=== PATIENT | female | born 1945 | race African-American/Black ===

== ENCOUNTER → 2016-09-24 | Outpatient (CLI) | payer MEDICARE ==
[~2016-09-24] MED LIST: CLCX200C; GLIM4TAB PO; LOSA1TAB70 PO; METO100T6 PO; NF-ESOM40C; OLME1TAB19; SITA100T; [UNRECOGNIZED DRUG - CODE]
--- OUTSIDE RECORDS SUMMARY | 2016-09-24 09:55 | XMS REPORT | Continuity of Care Document ---
Author Author [facility] Organization [facility] Address Unknown Phone Unavailable Care Team Providers Care Appliance Worker Name Role Phone Carlos Huynh PCP [phone] Source Comments Some departments are not documenting in the electronic medical record. If you do not see the information that you expected, contact Release of Information in the Health Information Management department at [phone] for further assistance in locating additional records.[facility] Active Allergies and Adverse Reactions No Known Allergies Current Medications Prescription Sig. Disp. Refills Start End Date Status Date metoprolol XL (TOPROL XL) Take 100 mg by mouth Active 100 mg tablet daily. COCONUT OIL PO Take 1 Tab by mouth Active daily. other medication Take 1 Dose by mouth Active daily. HAIR INFINITY SUPPLEMENT glimepiride (AMARYL) 4 mg Take 4 mg by mouth daily Active tablet with breakfast. losartan/hydrochlorothiaz Take 1 Tab by mouth Active marilee (HYZAAR) 100/25 mg daily. tablet 1 Tab ciprofloxacin HCl (CIPRO) Take 500 mg by mouth Active 500 mg tablet twice daily. liraglutide(+) (VICTOZA) Inject 0.6 mg under the Active 0.6 mg/0.1 mL (18 mg/3 skin daily. 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575 m (5' 2") 04/23/2016 10:38 AM CDT Weight 68.04 kg (150 lb) 04/23/2016 10:38 AM CDT Body Mass Index 27.43 04/23/2016 10:38 AM CDT Oxygen Saturation 98% 04/23/2016 10:38 AM CDT Plan of Care Date Type Specialty Providers Description 09/26/2016 Appointment Sports Medicine Michael Pedroza MD [address] [place] [address] [phone] (Fax) Health Maintenance Due Date Last Done Comments Hepatitis C Screening 1945 Physical (Comprehensive) 1954 Exam Pertussis Vaccine 1958 Tetanus Vaccine 1964 Breast Cancer Screening 1987 Colorectal Cancer 1997 Screening Shingles Vaccine 2007 Osteoporosis Screening 2012 Prevnar/Pneumovax (#1) 2012 Influenza Vaccine 04/18/2016 Results from Last 3 Months Not on file
[2016-09-24 10:03] LABS: BASOPHILS % (AUTO) 1 % (0-10); EOSINOPHILS # (AUTO) 0.1 10^3/uL (0.0-0.3); EOSINOPHILS % (AUTO) 2 % (0-10); LYMPHOCYTES # (AUTO) 2.8 X 10^3 (1.0-4.0); LYMPHOCYTES % (AUTO) 37 % (12-44); MEAN CORPUSCULAR HEMOGLOBIN 31 PG (25-34); MEAN CORPUSCULAR HGB CONC 34 G/DL (32-36); MEAN CORPUSCULAR VOLUME 90 FL (80-99); MONOCYTES # (AUTO) 0.7 X 10^3 (0.0-1.0); MONOCYTES % (AUTO) 9 % (0-12); NEUTROPHILS % (AUTO) 52 % (42-75); PLATELET COUNT 251 10^3/uL (130-400); RED BLOOD COUNT 4.39 10^6/uL (4.35-5.85); RED CELL DISTRIBUTION WIDTH 12.6 % (10.0-14.5); WHITE BLOOD COUNT 7.6 10^3/uL (4.3-11.0)
[2016-09-24 10:34] LABS: ALANINE AMINOTRANSFERASE 28 U/L (0-55); ALBUMIN 4.3 G/DL (3.2-4.5); ANION GAP 11 MMOL/L (5-14); ASPARTATE AMINO TRANSFERASE 19 U/L (5-34); BILIRUBIN,TOTAL 0.6 MG/DL (0.1-1.0); BLOOD UREA NITROGEN 15 MG/DL (7-18); BUN/CREATININE RATIO 17; CALCIUM 9.4 MG/DL (8.5-10.1); CARBON DIOXIDE 22 MMOL/L (21-32); CHLORIDE 103 MMOL/L (98-107); CREATININE SERUM 0.88 MG/DL (0.60-1.30); GFR ESTIMATED > 60; GLUCOSE 264 MG/DL (70-105); POTASSIUM 3.8 MMOL/L (3.6-5.0); SODIUM 136 MMOL/L (135-145); TOTAL PROTEIN 7.3 G/DL (6.4-8.2)
== END ==
LOC: ONC 09:53
PROVIDERS: ATTEND Internal Medicine Hematology & Oncology
DX: Z08 Encounter for follow-up examination after completed treatment for malignant neoplasm (principal); Z85.3 Personal history of malignant neoplasm of breast; E11.9 Type 2 diabetes mellitus without complications; I10 Essential (primary) hypertension; Z80.0 Family history of malignant neoplasm of digestive organs; Z86.010 Personal history of colon polyps; Z90.12 Acquired absence of left breast and nipple
CPT/HCPCS: 36415; 80053; 85025; 99213

== ENCOUNTER → 2016-10-02 | Outpatient (CLI) | payer MEDICARE ==
--- OUTSIDE RECORDS SUMMARY | 2016-10-02 08:12 | XMS REPORT | Continuity of Care Document ---
Author Author [facility] Organization [facility] Address Unknown Phone Unavailable Care Team Providers Care Medical Records Supervisor Name Role Phone Carlos Huynh PCP [phone] Source Comments Some departments are not documenting in the electronic medical record. If you do not see the information that you expected, contact Release of Information in the Health Information Management department at [phone] for further assistance in locating additional records.[facility] Active Allergies and Adverse Reactions No Known [...] Recent Encounters Date Type Specialty Providers Description 09/26/2016 Hospital Radiology Michael Pedroza MD Arrived Encounter 09/26/2016 Office Visit Sports Medicine Michael Pedroza MD Failed total left knee replacement, sequela (Primary Dx) 09/23/2016 Orders Only Sports Michael Ramirez MD Status post left knee replacement (Primary Dx) Social History Tobacco Use Types Packs/Day Years Used Date Former Smoker Quit: 06/14/1980 Smokeless Tobacco: Never Used Alcohol Use Drinks/Week oz/Week Comments No Last Filed Vital Signs Vital Sign Reading Time Taken Blood Pressure 143/76 09/26/2016 11:02 AM ADMINISTRATIVE AND PROGRAM SPECIALIST Pulse 75 09/26/2016 11:02 AM ADMINISTRATIVE AND PROGRAM SPECIALIST Temperature 37.5 C (99.5 F) 07/05/2015 3:29 PM ADMINISTRATIVE AND PROGRAM SPECIALIST Respiratory Rate 16 09/26/2016 11:02 AM ADMINISTRATIVE AND PROGRAM SPECIALIST Height 1.575 m (5' 2") 09/26/2016 11:02 AM ADMINISTRATIVE AND PROGRAM SPECIALIST Weight 75.751 kg (167 lb) 09/26/2016 11:02 AM ADMINISTRATIVE AND PROGRAM SPECIALIST Body Mass Index 30.54 09/26/2016 11:02 AM ADMINISTRATIVE AND PROGRAM SPECIALIST Oxygen Saturation 100% 09/26/2016 11:02 AM ADMINISTRATIVE AND PROGRAM SPECIALIST Plan of Care Date Type Specialty Providers Description 12/31/2016 Appointment Sports Medicine Michael Pedroza MD [address] [facility] [address] [place] [address] [phone] (Fax) Health Maintenance Due Date Last Done Comments Hepatitis C Screening 1945 Physical (Comprehensive) 1954 Exam Pertussis Vaccine 1958 Tetanus Vaccine 1964 Breast Cancer Screening 1987 Colorectal Cancer 1997 Screening Shingles Vaccine 2007 Osteoporosis Screening 2012 Prevnar/Pneumovax (#1) 2012 Influenza Vaccine 04/18/2016 Results from Last 3 Months KNEE 3 VIEWS LEFT (09/26/2016 11:10 AM) Impressions Findings/Impression: 1.Left knee: Unremarkable unchanged left total knee arthroplasty. Persistent thin lucent line at the bone cement interface along the anterior aspect of the femoral component to the total knee arthroplasty. Normal alignment. No fractures or bone lesions. No joint effusion. 2.Right knee merchant view: normal patellofemoral alignment. Patellofemoral joint spaces maintained. Finalized by Tawanda Ding M.D. on 09/26/2016 11:40 AM. Dictated by Tawanda Ding M.D. on 09/26/2016 11:39 AM. Narrative Left knee 3 views, right knee one view. History: Status post left total knee replacement. Compared to April 23, 2016. Procedure Note Interface, Radiant Results - [facility] Sep 26, 2016 11:44 AM ADMINISTRATIVE AND PROGRAM SPECIALIST Left knee 3 views, right knee one view. History: Status post left total knee replacement. Compared to April 23, 2016. IMPRESSION Findings/Impression: 1. Left knee: Unremarkable unchanged left total knee arthroplasty. Persistent thin lucent line at the bone cement interface along the anterior aspect of the femoral component to the total knee arthroplasty. Normal alignment. No fractures or bone lesions. No joint effusion. 2. Right knee merchant view: normal patellofemoral alignment. Patellofemoral joint spaces maintained. Finalized by Tawanda Ding M.D. on 09/26/2016 11:40 AM. Dictated by Tawanda Ding M.D. on 09/26/2016 11:39 AM.
--- NOTE | 2016-10-02 09:12 | Diagnostic Imaging Report ---
INDICATION: Shortness of breath. EXAMINATION: PA and lateral chest. FINDINGS: The heart size and pulmonary vascularity are normal. The lungs are clear. There are no effusions or pneumothoraces. IMPRESSION: Negative chest. Dictated by: Dictated on workstation # [id number]
--- NOTE | 2016-10-02 19:08 | Diagnostic Imaging Report ---
Bilateral diagnostic mammogram. INDICATION: Status post left mastectomy with an implant. The patient feels that the implant has shifted into the axilla region with fullness in the axilla. No prior studies are available to evaluate the implant. Prior studies comparison for the right breast are available, however, including 12/15/15. The current study was also evaluated with a Computer Aided Detection (CAD) system. FINDINGS: There is an implant in the left side with smooth margins and no mammographic evidence of rupture. There is a symmetric regular appearance of the implant with no outpouching into the axilla seen. No suspicious mass or calcification. The right breast demonstrates heterogeneously dense parenchyma, less dense compared to the previous study with benign-appearing calcifications. IMPRESSION: No mammographic evidence of malignancy. No mammographic abnormality of the left breast implant is seen. Ultrasound evaluation pending. ACR BI-RADS Category 0: Incomplete. (Needs additional imaging evaluation). Result letter will be mailed to the patient. Note: At least 10% of breast cancer is not imaged by mammography. Dictated by: Dictated on workstation # [id number]
--- NOTE | 2016-10-02 19:20 | Diagnostic Imaging Report ---
EXAMINATION: Left breast ultrasound. INDICATION: The patient feels that the implant appears shifted towards the axillary region. FINDINGS: The implant surface has a normal appearance with no surrounding fluid to suggest leakage, and there is no solid mass identified. IMPRESSION: No suspicious lesion and no evidence of implant rupture. This study cannot confirm or rule out shifting of the implant. Correlate clinically. ACR BI-RADS Category 2: Benign findings. Dictated by: Dictated on workstation # [id number]
== END ==
LOC: RAD 07:55
PROVIDERS: ATTEND Nurse Practitioner Adult Health
DX: N63 Unspecified lump in breast (principal); Z98.82 Breast implant status
CPT/HCPCS: 71020; 76641; 77066

== ENCOUNTER → 2017-08-13 | Outpatient (CLI) | payer MEDICARE ==
[~2017-08-13] MED LIST changes: +LOSA1TAB23 PO; -LOSA1TAB70 PO
== END ==
LOC: CARD 09:44
PROVIDERS: ATTEND Internal Medicine Cardiovascular Disease
DX: I10 Essential (primary) hypertension (principal); R06.02 Shortness of breath; E11.9 Type 2 diabetes mellitus without complications; M19.91 Primary osteoarthritis, unspecified site
CPT/HCPCS: 93306

== ENCOUNTER → 2017-09-03 | Outpatient (CLI) | payer MEDICARE ==
[~2017-09-03] MED LIST changes: +CATHETER FLUSH 10 ML SYR IV PRN
[2017-09-03 13:02] VITALS: BP 151/76
[2017-09-03 13:12] VITALS: BP 200/76
[2017-09-03 13:16] VITALS: BP 172/79
--- NOTE | 2017-09-03 20:54 | STRESS TEST ---
DATE OF SERVICE: 09/03/2017 EXERCISE MYOVIEW STRESS TEST REPORT Baseline heart rate is 81. Baseline blood pressure is 149/86. Baseline EKG is sinus rhythm with no ischemic changes. In summary, the patient was injected with 10.73 mCi of technetium-99 Myoview and the resting images were obtained. Then, the patient started exercising with a baseline heart rate, blood pressure and EKG mentioned above. The patient was able to exercise for a total of 3 minutes on standard Jose protocol. With peak exercise level, EKG was showing minimal nondiagnostic EKG changes, [address] depression in II, III, aVF, V3, V4, V5 and V6. With peak exercise level, blood pressure was 200/76. During recovery, heart rate and blood pressure returned to baseline. EKG returned to baseline. The resting and stress images were reviewed and compared in the short axis, horizontal long axis and vertical long axis views. Review of the images showed breast attenuation with good radiotracer uptake, no significant ischemia or infarction. SSS is 1, SDS 1, TID value 1.03. On the gated images, the left ventricle appeared to be normal size with normal contractility. Calculated ejection fraction 70%. CONCLUSION: 1. Poor exercise tolerance, a total of 3 minutes on standard Jose protocol, total of 4.6 METs achieving 94% of maximum expected heart rate. 2. Hypertensive response to exercise, returned to baseline during recovery. 3. Nondiagnostic EKG changes with exercise returned to baseline during recovery. 4. No ischemia or infarction on SPECT images. 5. Normal left ventricular size with normal contractility. Calculated ejection fraction 70%. Job ID: [id number] DocumentID: [id number] Dictated Date: 09/03/2017 15:10:17 Machine Lead Burner Date: 09/03/2017 19:52:55 Dictated By: BOGADN YOUNG MD
== END ==
LOC: CARD 11:27
PROVIDERS: ATTEND Internal Medicine Cardiovascular Disease
DX: I10 Essential (primary) hypertension (principal); R06.02 Shortness of breath; E11.9 Type 2 diabetes mellitus without complications; M19.91 Primary osteoarthritis, unspecified site
CPT/HCPCS: 78452; 93017

== ENCOUNTER → 2017-09-22 | Outpatient (CLI) | payer MEDICARE ==
[~2017-09-22] MED LIST changes: -CATHETER FLUSH 10 ML SYR IV PRN
[2017-09-22 15:12] LABS: BASOPHILS % (AUTO) 0 % (0-10); EOSINOPHILS # (AUTO) 0.1 10^3/uL (0.0-0.3); EOSINOPHILS % (AUTO) 2 % (0-10); HEMATOCRIT 36 % (35-52); HEMOGLOBIN 12.5 G/DL (11.5-16.0); LYMPHOCYTES # (AUTO) 3.6 X 10^3 (1.0-4.0); LYMPHOCYTES % (AUTO) 43 % (12-44); MEAN CORPUSCULAR HEMOGLOBIN 32 PG (25-34); MEAN CORPUSCULAR HGB CONC 34 G/DL (32-36); MEAN CORPUSCULAR VOLUME 92 FL (80-99); MEAN PLATELET VOLUME 9.5 FL (7.4-10.4); MONOCYTES # (AUTO) 0.7 X 10^3 (0.0-1.0); MONOCYTES % (AUTO) 9 % (0-12); NEUTROPHILS # (AUTO) 3.8 X 10^3 (1.8-7.8); NEUTROPHILS % (AUTO) 46 % (42-75); PLATELET COUNT 238 10^3/uL (130-400); RED BLOOD COUNT 3.95 10^6/uL (4.35-5.85); RED CELL DISTRIBUTION WIDTH 12.6 % (10.0-14.5); WHITE BLOOD COUNT 8.2 10^3/uL (4.3-11.0)
[2017-09-22 15:38] LABS: ALANINE AMINOTRANSFERASE 29 U/L (0-55); ALBUMIN 3.9 GM/DL (3.2-4.5); ALKALINE PHOSPHATASE 98 U/L (40-136); BILIRUBIN,TOTAL 0.3 MG/DL (0.1-1.0); BUN/CREATININE RATIO 25; CALCIUM 9.3 MG/DL (8.5-10.1); CARBON DIOXIDE 24 MMOL/L (21-32); CHLORIDE 101 MMOL/L (98-107); CREATININE SERUM 0.87 MG/DL (0.60-1.30); GFR ESTIMATED > 60; GLUCOSE 226 MG/DL (70-105); POTASSIUM 3.7 MMOL/L (3.6-5.0); SODIUM 138 MMOL/L (135-145); TOTAL PROTEIN 7.1 GM/DL (6.4-8.2)
== END ==
LOC: ONC 14:49
PROVIDERS: ATTEND Internal Medicine Hematology & Oncology
DX: Z08 Encounter for follow-up examination after completed treatment for malignant neoplasm (principal); Z85.3 Personal history of malignant neoplasm of breast; E11.9 Type 2 diabetes mellitus without complications; I10 Essential (primary) hypertension; Z80.0 Family history of malignant neoplasm of digestive organs; Z86.010 Personal history of colon polyps; Z90.12 Acquired absence of left breast and nipple
CPT/HCPCS: 36415; 80053; 85025; 99213

== ENCOUNTER → 2017-10-09 | Outpatient (CLI) | payer MEDICARE ==
--- NOTE | 2017-10-09 18:19 | Diagnostic Imaging Report ---
INDICATION: Routine screening. Comparison is made with prior exam from 10/02/2016 and 12/15/2015. The current study was also evaluated with a Computer Aided Detection (CAD) system. Scattered parenchymal fibroglandular tissue is noted on the right. The parenchymal pattern is stable. No dominant mass or malignant appearing microcalcifications are seen. The right axilla is unremarkable. IMPRESSION: No mammographic features suspicious for malignancy are identified. ACR BI-RADS Category 1: Negative. Result letter will be mailed to the patient. Note: At least 10% of breast cancer is not imaged by mammography. Dictated by: Dictated on workstation # [id number]
== END ==
LOC: RAD 09:44
PROVIDERS: ATTEND Internal Medicine Hematology & Oncology
DX: Z12.31 Encounter for screening mammogram for malignant neoplasm of breast (principal); Z85.3 Personal history of malignant neoplasm of breast

== ENCOUNTER → 2018-05-25 | Outpatient (CLI) | payer MEDICARE ==
--- NOTE | 2018-05-25 09:10 | Diagnostic Imaging Report ---
PROCEDURE: MRI lumbar spine. TECHNIQUE: Multiplanar, multisequence MRI of the lumbar spine was performed without contrast. INDICATION: No known injury, however low back pain radiating down the left knee, left leg and posterior to the knee symptoms of one and half years' duration, has a remote history of breast cancer. COMPARISONS: I have no priors. FINDINGS: There is no geographic marrow lesion. There are no findings suggestive of the MRI evidence for lumbar spinal involvement by metastatic disease. There is no evidence for fracture or infection. There is grade 1 degenerative anterolisthesis of L4 on L5 without demonstrated pedicle or pars defect. Posterior cortices are off about 3 mm. The remaining levels are aligned normally and the lumbar statures are normal. There is no paravertebral mass, hemorrhage or fluid collection. The conus appeared normal. The nerve roots of the cauda equina revealed a normal pattern of dispersal. T12-L1: Very slight anteriorly oriented osteophyte disc material results in no stenosis. L1-L2: Minimal anterior endplate osteophytes are present. There is no stenosis. L2-L3: There is mild disc desiccation without substantial stature loss. There is mild thickening of the ligamenta flava with mild anterior osteophyte disc material. There was however no substantial canal, foraminal or recess stenosis. L3-L4: There is thickening of ligamenta flava, facet arthrosis with mild disc bulging diffusely. The constellation of findings results in a borderline mild degree of biforaminal narrowing and a mild degree of central canal stenosis. L4-L5: Degenerative listhesis, disc bulge, hypertrophic facet arthrosis and substantial thickening of ligamenta flava conspire to result in a severe degree of trefoil configured stenosis of the thecal sac at this disc space level with at least with a moderate severity of right and [id number] left foraminal narrowing. L5-S1: Midline focal disc protrusion slightly indents the ventral thecal sac. There is peripheral annular tearing associated with the midline bulge disc. The neural foramen however widely patent. The spinal canal stenosis is relatively mild. IMPRESSION: 1. Grade 1 degenerative L4 on L5 anterolisthesis where there is severe central canal stenosis owing to a constellation of contributing factors listed above. There is right greater than left foraminal narrowing. 2. A midline protrusion at L5-S1 mildly stenoses the thecal sac. 3. No evidence for fracture, infection or metastatic disease. Dictated by: Dictated on workstation # [id number]
== END ==
LOC: RAD 07:19
PROVIDERS: ATTEND Pain Medicine Interventional Pain Medicine
DX: M48.061 Spinal stenosis, lumbar region without neurogenic claudication (principal); M51.27 Other intervertebral disc displacement, lumbosacral region; M51.37 Other intervertebral disc degeneration, lumbosacral region; M43.16 Spondylolisthesis, lumbar region; M99.73 Connective tissue and disc stenosis of intervertebral foramina of lumbar region; M47.22 Other spondylosis with radiculopathy, cervical region; M51.17 Intervertebral disc disorders with radiculopathy, lumbosacral region; M25.78 Osteophyte, vertebrae; M46.06 Spinal enthesopathy, lumbar region; Z85.3 Personal history of malignant neoplasm of breast
CPT/HCPCS: 72148

== ENCOUNTER 2018-09-22 10:51 | Outpatient (RCR) | payer MEDICARE ==
[2018-09-22 11:05] LABS: BASOPHILS % (AUTO) 1 % (0-10); EOSINOPHILS # (AUTO) 0.1 10^3/uL (0.0-0.3); EOSINOPHILS % (AUTO) 2 % (0-10); HEMATOCRIT 39 % (35-52); LYMPHOCYTES # (AUTO) 2.9 X 10^3 (1.0-4.0); LYMPHOCYTES % (AUTO) 34 % (12-44); MEAN CORPUSCULAR HEMOGLOBIN 31 PG (25-34); MEAN CORPUSCULAR HGB CONC 33 G/DL (32-36); MEAN CORPUSCULAR VOLUME 93 FL (80-99); MEAN PLATELET VOLUME 9.3 FL (7.4-10.4); MONOCYTES # (AUTO) 0.7 X 10^3 (0.0-1.0); MONOCYTES % (AUTO) 9 % (0-12); NEUTROPHILS # (AUTO) 4.8 X 10^3 (1.8-7.8); NEUTROPHILS % (AUTO) 56 % (42-75); PLATELET COUNT 340 10^3/uL (130-400); RED CELL DISTRIBUTION WIDTH 12.9 % (10.0-14.5); WHITE BLOOD COUNT 8.6 10^3/uL (4.3-11.0)
[2018-09-22 11:25] LABS: ALANINE AMINOTRANSFERASE 24 U/L (0-55); ALBUMIN 4.4 GM/DL (3.2-4.5); ALKALINE PHOSPHATASE 155 U/L (40-136); BILIRUBIN,TOTAL 0.5 MG/DL (0.1-1.0); BUN/CREATININE RATIO 19; CARBON DIOXIDE 29 MMOL/L (21-32); CHLORIDE 101 MMOL/L (98-107); CREATININE SERUM 0.78 MG/DL (0.60-1.30); GFR ESTIMATED > 60; GLUCOSE 128 MG/DL (70-105); POTASSIUM 3.4 MMOL/L (3.6-5.0); SODIUM 140 MMOL/L (135-145); TOTAL PROTEIN 7.9 GM/DL (6.4-8.2)
== END 2018-12-21 | disposition home or self-care (01) ==
LOC: ONC 10:51
PROVIDERS: ATTEND Internal Medicine Hematology & Oncology
DX: Z08 Encounter for follow-up examination after completed treatment for malignant neoplasm (principal); Z85.3 Personal history of malignant neoplasm of breast; E11.9 Type 2 diabetes mellitus without complications; I10 Essential (primary) hypertension; Z80.0 Family history of malignant neoplasm of digestive organs; Z86.010 Personal history of colon polyps; Z90.12 Acquired absence of left breast and nipple
CPT/HCPCS: 36415; 80053; 85025; 99213

== ENCOUNTER → 2019-02-22 | Outpatient (CLI) | payer MEDICARE ==
--- NOTE | 2019-02-22 09:46 | Diagnostic Imaging Report ---
PROCEDURE: CT lumbar spine without contrast. TECHNIQUE: Multiple contiguous axial images were obtained through the lumbar spine without the use of intravenous contrast. Sagittal and coronal reformations were then performed. Auto Exposure Controls were utilized during the CT exam to meet ALARA standards for radiation dose reduction. INDICATION: Low back pain. FINDINGS: Curvature and alignment of lumbar spine is normal. There are postoperative changes posterior instrumented fusion with vertical stabilization rods and pedicle screws transfixing L4-L5 level. Hardware appears to be intact without fracture or loosening. There is intervertebral device at L4-L5 as well. Vertebral body heights are maintained. Disc spaces are fairly well-maintained. No acute bony abnormality is identified. Paraspinous tissues are unremarkable. IMPRESSION: Postop changes of posterior instrumented fusion L4-L5. No complicating features are seen. Dictated by: Dictated on workstation # [id number]
== END ==
LOC: RAD 08:45
PROVIDERS: ATTEND Physician Assistant
DX: M54.5 Low back pain (principal); Z98.1 Arthrodesis status
CPT/HCPCS: 72131

== ENCOUNTER → 2019-09-13 | Outpatient (CLI) | payer MEDICARE ==
[~2019-09-13] MED LIST changes: -GLIM4TAB PO; +GLIM4TAB3 PO
[2019-09-13 10:22] LABS: BASOPHILS % (AUTO) 0 % (0-10); EOSINOPHILS # (AUTO) 0.1 10^3/uL (0.0-0.3); EOSINOPHILS % (AUTO) 1 % (0-10); HEMATOCRIT 41 % (35-52); HEMOGLOBIN 13.6 G/DL (11.5-16.0); LYMPHOCYTES # (AUTO) 3.1 X 10^3 (1.0-4.0); LYMPHOCYTES % (AUTO) 28 % (12-44); MEAN CORPUSCULAR HEMOGLOBIN 31 PG (25-34); MEAN CORPUSCULAR HGB CONC 33 G/DL (32-36); MEAN CORPUSCULAR VOLUME 93 FL (80-99); MEAN PLATELET VOLUME 9.2 FL (7.4-10.4); MONOCYTES # (AUTO) 0.9 X 10^3 (0.0-1.0); MONOCYTES % (AUTO) 8 % (0-12); NEUTROPHILS # (AUTO) 7.2 X 10^3 (1.8-7.8); NEUTROPHILS % (AUTO) 63 % (42-75); PLATELET COUNT 250 10^3/uL (130-400); RED CELL DISTRIBUTION WIDTH 13.2 % (10.0-14.5); WHITE BLOOD COUNT 11.3 10^3/uL (4.3-11.0)
[2019-09-13 10:50] LABS: ALANINE AMINOTRANSFERASE 26 U/L (0-55); ALBUMIN 4.3 GM/DL (3.2-4.5); ALKALINE PHOSPHATASE 94 U/L (40-136); BILIRUBIN,TOTAL 0.9 MG/DL (0.1-1.0); BUN/CREATININE RATIO 24; CALCIUM 9.5 MG/DL (8.5-10.1); CARBON DIOXIDE 25 MMOL/L (21-32); CHLORIDE 103 MMOL/L (98-107); CREATININE SERUM 0.72 MG/DL (0.60-1.30); GFR ESTIMATED > 60; GLUCOSE 122 MG/DL (70-105); POTASSIUM 3.7 MMOL/L (3.6-5.0); SODIUM 138 MMOL/L (135-145); TOTAL PROTEIN 7.6 GM/DL (6.4-8.2)
== END ==
LOC: EDSTATUS 12-22 08:22 → ONC 10:02
PROVIDERS: ATTEND Internal Medicine Hematology & Oncology
DX: Z08 Encounter for follow-up examination after completed treatment for malignant neoplasm (principal); Z85.3 Personal history of malignant neoplasm of breast; E11.9 Type 2 diabetes mellitus without complications; I10 Essential (primary) hypertension; Z80.0 Family history of malignant neoplasm of digestive organs; Z86.010 Personal history of colon polyps; Z90.12 Acquired absence of left breast and nipple
CPT/HCPCS: 80053; 85025; 99213

== ENCOUNTER → 2019-09-20 | Outpatient (CLI) | payer MEDICARE ==
--- NOTE | 2019-09-20 12:18 | Diagnostic Imaging Report ---
INDICATION: Routine screening. COMPARISON: 10/07/2017 and 10/02/2016. TECHNIQUE: 2D and 3D unilateral right screening mammography was performed with CAD. FINDINGS: The right breast is heterogeneously dense, limiting the sensitivity of mammography. There are vascular calcifications. Benign parenchymal calcifications are noted. No mass or malignant appearing microcalcifications are seen. The right axilla is unremarkable. IMPRESSION: No mammographic features suspicious for malignancy are identified. ACR BI-RADS Category 2: Benign findings. Result letter will be mailed to the patient. Note: At least 10% of breast cancer is not imaged by mammography. Dictated by: Dictated on workstation # [id number]
== END ==
LOC: RAD 09:45
PROVIDERS: ATTEND Internal Medicine Hematology & Oncology
DX: Z12.31 Encounter for screening mammogram for malignant neoplasm of breast (principal); Z85.3 Personal history of malignant neoplasm of breast

== ENCOUNTER → 2020-09-19 | Outpatient (CLI) | payer MEDICARE ==
[~2020-09-19] MED LIST changes: -GLIM4TAB3 PO; +GLIM4TAB5 PO
[2020-09-19 13:11] LABS: BASOPHILS # (AUTO) 0.1 10^3/uL (0.0-0.1); BASOPHILS % (AUTO) 1 % (0-10); EOSINOPHILS # (AUTO) 0.3 10^3/uL (0.0-0.3); EOSINOPHILS % (AUTO) 3 % (0-10); HEMATOCRIT 40 % (35-52); HEMOGLOBIN 13.6 g/dL (11.5-16.0); LYMPHOCYTES % (AUTO) 38 % (12-44); MEAN CORPUSCULAR HEMOGLOBIN 32 pg (25-34); MEAN CORPUSCULAR HGB CONC 34 g/dL (32-36); MEAN CORPUSCULAR VOLUME 92 fL (80-99); MEAN PLATELET VOLUME 9.7 fL (9.0-12.2); MONOCYTES # (AUTO) 0.9 10^3/uL (0.0-1.0); MONOCYTES % (AUTO) 9 % (0-12); NEUTROPHILS # (AUTO) 5.2 10^3/uL (1.8-7.8); NEUTROPHILS % (AUTO) 50 % (42-75); PLATELET COUNT 285 10^3/uL (130-400); WHITE BLOOD COUNT 10.5 10^3/uL (4.3-11.0)
[2020-09-19 13:30] LABS: ALANINE AMINOTRANSFERASE 26 U/L (0-55); ALBUMIN 4.4 GM/DL (3.2-4.5); ALKALINE PHOSPHATASE 103 U/L (40-136); BILIRUBIN,TOTAL 0.4 MG/DL (0.1-1.0); BUN/CREATININE RATIO 27; CALCIUM 9.6 MG/DL (8.5-10.1); CARBON DIOXIDE 22 MMOL/L (21-32); CHLORIDE 103 MMOL/L (98-107); CREATININE SERUM 0.84 MG/DL (0.60-1.30); GFR ESTIMATED > 60; GLUCOSE 107 MG/DL (70-105); POTASSIUM 3.3 MMOL/L (3.6-5.0); SODIUM 138 MMOL/L (135-145)
== END ==
LOC: ONC 13:00
PROVIDERS: ATTEND Internal Medicine Hematology & Oncology
DX: Z12.31 Encounter for screening mammogram for malignant neoplasm of breast (principal); I89.0 Lymphedema, not elsewhere classified; I10 Essential (primary) hypertension; E11.9 Type 2 diabetes mellitus without complications; E78.2 Mixed hyperlipidemia; M19.90 Unspecified osteoarthritis, unspecified site; Z85.3 Personal history of malignant neoplasm of breast; Z98.890 Other specified postprocedural states; Z96.652 Presence of left artificial knee joint; Z92.21 Personal history of antineoplastic chemotherapy; Z90.12 Acquired absence of left breast and nipple
CPT/HCPCS: 80053; 85025; G0463; 99213

== ENCOUNTER → 2020-10-10 | Outpatient (CLI) | payer MEDICARE ==
--- NOTE | 2020-10-10 13:24 | Diagnostic Imaging Report ---
Indication: Routine screening. Comparison is made prior mammogram 09/20/2019 10/09/2017. Unilateral right 2-D and 3-D screening mammography was performed with CAD. Right breast is heterogeneously dense, limiting the sensitivity of mammography. Benign parenchymal and vascular calcifications again noted. No mass or malignant appearing microcalcifications are seen. Right axilla is unremarkable. IMPRESSION: BI-RADS Category 2 No mammographic features suspicious for malignancy are identified. ACR BI-RADS Category 2: Benign findings. Result letter will be mailed to the patient. Note: At least 10% of breast cancer is not imaged by mammography. Dictated by: Dictated on workstation # [id number]
== END ==
LOC: RAD 11:30
PROVIDERS: ATTEND Internal Medicine Hematology & Oncology
DX: Z12.31 Encounter for screening mammogram for malignant neoplasm of breast (principal); C50.111 Malignant neoplasm of central portion of right female breast
CPT/HCPCS: 77063

== ENCOUNTER → 2021-02-27 | Outpatient (CLI) | payer MEDICARE ==
--- NOTE | 2021-02-27 13:42 | Diagnostic Imaging Report ---
INDICATION: Swelling of the lateral foot and ankle. 3 views right foot were obtained. FINDINGS: There is generalized demineralization. Metatarsals appear intact. Phalanges are intact. There are some degenerative changes involving multiple tarsometatarsal joints. Midfoot and hindfoot are unremarkable apart from a large plantar calcaneal spur. No fractures are seen. IMPRESSION: Chronic changes. No acute bony abnormality is detected. Dictated by: Dictated on workstation # [id number]
== END ==
LOC: RAD 10:45
PROVIDERS: ATTEND Nurse Practitioner Family
DX: M25.471 Effusion, right ankle (principal)
CPT/HCPCS: 73630

== ENCOUNTER 2022-05-25 11:43 | Outpatient (CLI) | payer MEDICARE ==
[~2022-05-25] VITALS: Ht 158 cm; Wt 72.7 kg
--- NOTE | 2022-05-25 12:20 | Diagnostic Imaging Report ---
INDICATION: Sensation of incomplete bladder emptying. There is mildly elevated colonic fecal load, mild constipation could not be excluded. No radiographically apparent abnormal distention of the urinary bladder. The right hip replaced. There is a lower lumbar postsurgical changes. IMPRESSION: Elevated fecal load correlate for constipation. Abdominal radiographs otherwise normal. Dictated by: Dictated on workstation # [id number]
[2022-05-25 12:22] VITALS: BP 458/85
== END 2022-05-25 12:45 | disposition home or self-care (01) ==
LOC: 4THo 11:43
PROVIDERS: ATTEND Registered Nurse Critical Care Medicine
DX: N39.0 Urinary tract infection, site not specified (principal); R50.81 Fever presenting with conditions classified elsewhere; I10 Essential (primary) hypertension; E11.9 Type 2 diabetes mellitus without complications
CPT/HCPCS: 74018